=== PATIENT | male | born 1945 | race Caucasian/White ===

== ENCOUNTER 2016-08-13 13:04 | Emergency (ER) | payer MEDICARE ==
[~2016-08-13] VITALS: Ht 177.8 cm; Wt 75.0 kg
[~2016-08-13 13:04] MED LIST: ADVAI500I PO; ALBU1.25 NEB; ASPI325T PO; CARV12.5 PO; DIGO0.25 PO; LEVA750T PO; PRED-1 PO; PRIN10TA PO; ROFL1TAB2 PO; SPIRCAP INH; Z.0.OXYGEN INH
[2016-08-13 13:06] VITALS: BP 137/64; PULSE 63; RESP 14; TEMP 98.1; O2SAT 84
[2016-08-13 13:51] LABS: AUTOMATED NEUTROPHIL # 6.8 TH/MM3 (1.8-7.7); BASOPHIL % 0.4 % (0.0-2.0); EOSINOPHIL # 0.1 TH/MM3 (0-0.4); EOSINOPHIL % 0.9 % (0.0-4.0); HEMATOCRIT 42.7 % (39.0-51.0); HEMO FLAGS DIFF FINAL; LYMPH % 13.9 % (9.0-44.0); LYMPHOCYTE # 1.2 TH/MM3 (1.0-4.8); MEAN CELL VOLUME 95.2 FL (80.0-100.0); MEAN CORPUSCULAR HEMOGLOBIN 32.4 PG (27.0-34.0); MONO % 7.6 % (0.0-8.0); NEUT % 77.2 % (16.0-70.0); PLATELET COUNT 178 TH/MM3 (150-450); RED BLOOD COUNT 4.48 MIL/MM3 (4.50-5.90); RED CELL DISTRIBUTION WIDTH 15.8 % (11.6-17.2); WHITE BLOOD COUNT 8.8 TH/MM3 (4.0-11.0)
--- NOTE | 2016-08-13 13:53 | RADRPT ---
EXAM DATE/TIME: 08/13/2016 13:45 [place] COMPARISON: CHEST PA & LAT, July 29, 2014, 12:32. INDICATIONS : Shortness of breath. MEDICAL HISTORY : Chronic obstructive pulmonary disease. SURGICAL HISTORY : None. ENCOUNTER: Initial ACUITY: 1 day PAIN SCORE: 0/10 LOCATION: Bilateral chest FINDINGS: Single AP portable upright view of the chest again demonstrates elevation of the right hemidiaphragm. There is persistent adjacent curvilinear airspace opacity consistent with atelectasis versus scar wi thin the right lung base. The aerated right lung is clear. The left hemithorax is clear. The heart si ze is normal. The vasculature is normal. Osseous structures are intact. CONCLUSION: No acute disease. Jenelle Rosa MD on August 13, 2016 at 13:50 Board Certified Radiologist. This report was verified electronically.
--- NOTE | 2016-08-13 14:11 | PD ---
HPI Chief Complaint: Cardiac Complaint Time Seen by Provider: 14:00 Travel History International Travel<30 days: No Contact w/Intl Traveler<30days: No Traveled to known affect area: No History of Present Illness HPI 71-year-old male came to the emergency room with history of chest pressure 3-4 days ago and bradycardia associated with dizziness this morning. Patient says his heart rate went down to the 40s. Usually he is between 80s to 90s. This concerned him and he came to the emergency room. 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 He also has history of chronic COPD and oxygen dependent. Patient was hypoxic in the ER. However he says his shortness of breath is at the baseline. PFSH Past Medical History Narrative Medical List of his past medical history as reviewed from the nursing note. Hx Anticoagulant Therapy: Yes Asthma: No Blood Disorders: No Anxiety: No Depression: No Heart Rhythm Problems: Yes Cancer: No Cardiac Catheterization: Yes (2000) Cardiovascular Problems: Yes High Cholesterol: Yes Chemotherapy: No Chest Pain: No Congestive Heart Failure: No COPD: Yes Diminished Hearing: No Endocrine: No Gastrointestinal Disorders: No GERD: No Genitourinary: No Hepatitis: No Hiatal Hernia: No Hypertension: No Immune Disorder: No Musculoskeletal: No Neurologic: No Psychiatric: No Reproductive: No Respiratory: Yes Myocardial Infarction: Yes Radiation Therapy: No Sleep Apnea: No Ulcer: Yes Past Surgical History Abdominal Surgery: Yes (APPENDX REVOVAL ) Appendectomy: Yes Cardiac Surgery: Yes (ATRIAL ABLATION) Cholecystectomy: No Coronary Stent: Yes (X 3 2000) Ear Surgery: No Endocrine Surgery: No Eye Surgery: No Oral Surgery: No Thoracic Surgery: No Tonsillectomy: Yes Other Surgery: No Social History Alcohol Use: Yes (6-12 BEERS/WEEK) Tobacco Use: No Substance Use: No Allergies-Medications (Allergen,Severity, Reaction): Coded Allergies: No Known Allergies (Verified , 08/13/16) Comments No known drug allergies. Reported Meds & Prescriptions Reported Meds & Active Scripts Active Coreg (Carvedilol) 12.5 Mg Tab 12.5 Mg PO BID Reported Breo Ellipta Inh (Fluticasone/Vilanterol) 100-25 Mcg/Act Inh 1 Puff INH DAILY Use daily at the same time. Spiriva Handihaler (Tiotropium Inh) 18 Mcg Cap 18 Mcg INH DAILY 1 capsule = 18 mcg Warfarin 4 Mg Tab 4 Mg PO DAILY Carvedilol 12.5 Mg Tab 12.5 Mg PO BID Narrative Medication List of his home medications reviewed from the nursing note. Review of Systems Except as stated in HPI: all other systems reviewed are Neg Physical Exam Narrative GENERAL: Awake, alert, moderate distress, looks older than his age SKIN: Warm and dry. HEAD: Atraumatic. Normocephalic. EYES: Pupils equal and round. No scleral icterus. No injection or drainage. ENT: No nasal bleeding or discharge. Mucous membranes pink and moist. NECK: Trachea midline. No JVD. CARDIOVASCULAR: Regular rate and rhythm. No murmur appreciated. RESPIRATORY: Decreased air entry bilaterally GASTROINTESTINAL: Abdomen soft, non-tender, nondistended. Hepatic and splenic margins not palpable. MUSCULOSKELETAL: No obvious deformities. No clubbing. No cyanosis. No edema. NEUROLOGICAL: Awake and alert. No obvious cranial nerve deficits. Motor grossly within normal limits. Normal speech. PSYCHIATRIC: Appropriate mood and affect; insight and judgment normal. Data Data Last Documented VS Vital Signs Date Time Temp Pulse Resp B/P Pulse Ox O2 Delivery O2 Flow Rate FiO2 08/13/16 13:06 98.1 63 14 137/64 84 Room Air Orders Electrocardiogram (08/13/16 13:23) Complete Blood Count With Diff (08/13/16 13:23) Basic Metabolic Panel (Bmp) (08/13/16 13:23) Ckmb (Isoenzyme) Profile (08/13/16 13:23) Troponin I (08/13/16 13:23) Chest, Single Ap (08/13/16 13:23) Prothrombin Time / Inr (Pt) (08/13/16 15:21) Labs Laboratory Tests Test 08/13/16 08/13/16 13:40 15:20 White Blood Count 8.8 TH/MM3 Red Blood Count 4.48 MIL/MM3 Hemoglobin 14.5 GM/DL Hematocrit 42.7 % Mean Corpuscular Volume 95.2 FL Mean Corpuscular Hemoglobin 32.4 PG Mean Corpuscular Hemoglobin 34.0 % Concent Red Cell Distribution Width 15.8 % Platelet Count 178 TH/MM3 Mean Platelet Volume 7.2 FL Neutrophils (%) (Auto) 77.2 % Lymphocytes (%) (Auto) 13.9 % Monocytes (%) (Auto) 7.6 % Eosinophils (%) (Auto) 0.9 % Basophils (%) (Auto) 0.4 % Neutrophils # (Auto) 6.8 TH/MM3 Lymphocytes # (Auto) 1.2 TH/MM3 Monocytes # (Auto) 0.7 TH/MM3 Eosinophils # (Auto) 0.1 TH/MM3 Basophils # (Auto) 0.0 TH/MM3 CBC Comment DIFF FINAL Differential Comment Sodium Level 139 MEQ/L Potassium Level 4.1 MEQ/L Chloride Level 99 MEQ/L Carbon Dioxide Level 36.1 MEQ/L Anion Gap 4 MEQ/L Blood Urea Nitrogen 18 MG/DL Creatinine 0.86 MG/DL Estimat Glomerular Filtration 88 ML/MIN Rate Random Glucose 90 MG/DL Calcium Level 8.8 MG/DL Total Creatine Kinase 46 U/L Troponin I LESS THAN 0.02 NG/ML Prothrombin Time 21.0 SEC Prothromb Time International 1.8 RATIO Ratio MDM Medical Decision Making Medical Screen Exam Complete: Yes Emergency Medical Condition: Yes Medical Record Reviewed: Yes Interpretation(s) Twelve-lead EKG was reviewed by me. Normal sinus rhythm, normal axis, bradycardia. Heart rate of 55 bpm. Differential Diagnosis ACS, medication related sinus bradycardia Narrative Course 2:29 PM awaiting for the troponin. Once I have the test results back I will discuss the case with his top lift scourer Dr. Harrison. 3:59 PM I discussed the case with patient's top lift scourer once all the test results were back. As per him the bradycardia was probably due to the Coreg and he recommended to cut the Coreg to half the dose and he would see him in the office early next week. Also he was pretty comfortable with the patient's recent stress test which was negative. Patient is on Coumadin and INR was not ordered initially which I have and currently waiting for the test result. If that's within normal limit patient will be discharged home. 4:17 PM patient just informed me that he takes 12.5 mg twice a day. I asked him to take half of that dose till he sees the top lift scourer. Patient is comfortable going home. Procedures EKG Prior to Arrival: Yes Physician Communication Physician Communication Dr. Harrison Diagnosis Primary Impression: Bradycardia Additional Impressions: Dizziness COPD (chronic obstructive pulmonary disease) Qualified Code: J43.9 - Pulmonary emphysema, unspecified emphysema type Referrals: Primary Care Physician Additional Instructions: Please follow-up with your top lift scourer early next week. Your Coreg will be reduced to half the dose since that's probably the reason for you bradycardia. Return to the ER if the conditions worsens or any other new concerns. Stop taking the older prescription for Coreg. Med/Other Pt SpecificInfo: Prescription(s) given Scripts Carvedilol (Coreg)12.5 Mg Tab12.5 Mg PO BID #60 TAB Ref 0 Prov:Loi Calvin MD 08/13/16 Disposition: 01 DISCHARGE HOME Condition: Stable Loi Calvin MD Aug 13, 2016 14:10
[2016-08-13 14:16] LABS: ANION GAP 4 MEQ/L (5-15); BICARBONATE 36.1 MEQ/L (21.0-32.0); BLOOD UREA NITROGEN 18 MG/DL (7-18); CHLORIDE 99 MEQ/L (98-107); GLOMERULAR FILTRATION RATE 88 ML/MIN (>89); POTASSIUM 4.1 MEQ/L (3.5-5.1); SODIUM (NA) 139 MEQ/L (136-145)
[2016-08-13 14:42] LABS: CREATINE KINASE 46 U/L (39-308)
[2016-08-13] MEDS ORDERED: CARV12.52 PO (15:41)
[2016-08-13] MEDS ORDERED: FLUT1INH INH (15:42)
[2016-08-13] MEDS ORDERED: WARF-20 PO (15:42)
[2016-08-13] MEDS ORDERED: SPIRCAP INH (15:42)
[2016-08-13] MEDS ORDERED: CARV12.5 PO (16:02)
[2016-08-13 16:07] LABS: INTERNATIONAL NORMALIZED RATIO 1.8 RATIO
--- NOTE | 2016-08-14 16:48 | EKG ---
Date Performed: 08/13/2016 Time Performed: 13:28:35 PTAGE: 71 years EKG: SINUS BRADYCARDIA POSSIBLE RIGHT VENTRICULAR CONDUCTION DELAY BORDERLINE ECG PREVIOUS TRACING : 07/29/2014 11.43 Compared to the previous tracing, Afib is no longer presen t DOCTOR: Pascual Cadena Interpretating Date/Time 08/14/2016 16:47:13
== END 2016-08-13 16:47 | disposition home or self-care (01) ==
LOC: NEPC 13:04
DX: R00.1 Bradycardia, unspecified (principal); R42 Dizziness and giddiness; J44.9 Chronic obstructive pulmonary disease, unspecified; E78.00 Pure hypercholesterolemia, unspecified; I25.2 Old myocardial infarction
CPT/HCPCS: 71010; 80048; 82550; 84484; 85025; 85610; 93005